=== PATIENT | female | born 1950 | race African-American/Black ===

== ENCOUNTER 2017-04-01 10:50 | Inpatient (IN) | payer OTHER, MEDICAID ==
[~2017-04-01] VITALS: Ht 165.1 cm; Wt 88.7 kg
[~2017-04-01 10:50] MED LIST: ACET650T10 PO; AMLO5TAB2 PO; ASPI-991 PO; DONE10TA14 PO; ESCI10TA PO; LISI40TA4 PO; LORA1TAB PO; OLAN2.5T3 PO; PANT40TA4 PO; ZOLP5TAB7 PO
[2017-04-01] MEDS ORDERED: ONDA4TAB5 GT (11:25)
[2017-04-01] MEDS ORDERED: TRAV5DRO EACHEYE (11:25)
[2017-04-01] MEDS ORDERED: LISI-603 PO ×2 (11:25)
[2017-04-01] MEDS ORDERED: NAPR375T4 PO (11:25)
[2017-04-01] MEDS ORDERED: ACET-2067 PO (11:25)
[2017-04-01] MEDS ORDERED: ONDA4TAB5 PO (11:25)
--- NOTE | 2017-04-01 11:30 | NUR ---
Pt evaluated by MD in room 1B; BIB ambulance from assisted living facility for inadequate PO intake per paramedics. Pt w/ altered mental status, hx of alzheimers; Cont w/ MD orders.
[2017-04-01 11:41] LABS: ALANINE AMINOTRANSFERASE 48 U/L (14-59); ALKALINE PHOSPHATASE 87 U/L (50-136); ASPARTATE AMINOTRANSFERASE 55 U/L (15-37); BILIRUBIN,DIRECT 0.2 mg/dL (0.0-0.2); BILIRUBIN,TOTAL 0.8 mg/dL (0.2-1.0); CARBON DIOXIDE 30 mmol/L (21-32); CHLORIDE 113 mmol/L (98-107); GLUCOSE 115 mg/dL (74-106); POTASSIUM 3.8 mmol/L (3.5-5.1); TOTAL PROTEIN, SERUM 9.5 g/dL (6.4-8.2); UREA NITROGEN, BLOOD 49 mg/dL (7-18)
[2017-04-01 11:44] LABS: CREATININE 2.6 mg/dL (0.6-1.3)
[2017-04-01 11:45] LABS: ACETAMINOPHEN < 2.0 ug/mL (10-30)
[2017-04-01 11:55] LABS: MAGNESIUM 2.7 mg/dL (1.8-2.4); PHOSPHOROUS 3.4 mg/dL (2.5-4.9)
[2017-04-01] MEDS ORDERED: IV NORMAL SALINE 500 ML BAG IV ONE (12:00)
[2017-04-01 12:23] LABS: *BLOOD, URINE 2+ (NEGATIVE); *CLARITY,URINE CLOUDY (CLEAR); *COLOR,URINE YELLOW (YELLOW); *KETONES,URINE TRACE (NEGATIVE); *PROTEIN,URINE 2+ (NEGATIVE); LEUKOCYTE ESTERASE ,URINE 2+ (NEGATIVE); UGLUCOSE NEGATIVE (NEGATIVE)
--- NOTE | 2017-04-01 12:23 | NUR ---
ER registration staff Marcos is working on patient's insurance at this time.
[2017-04-01 12:32] LABS: ETHANOL < 3 MG/DL (0-0)
[2017-04-01 12:39] LABS: NITRITE, URINE POSITIVE (NEGATIVE)
[2017-04-01 12:40] LABS: *AMPHETAMINE, URINE NEGATIVE (NEGATIVE); *BARBITURATE, URINE NEGATIVE (NEGATIVE); *CANNABINOID, URINE NEGATIVE (NEGATIVE); *COCCAINE, URINE NEGATIVE (NEGATIVE); *OPIATE, URINE NEGATIVE (NEGATIVE); *PHENCYCLIDINE SCREEN,URINE NEGATIVE (NEGATIVE)
[2017-04-01 12:42] LABS: *BILIRUBIN,URIN 1+ (NEGATIVE)
[2017-04-01 12:44] LABS: BACTERIA,URINE MANY /HPF (NONE SEEN); RBC,URINE 50-80 /HPF (0-3); SQUAMOUS EPITHELIAL CELL,UR FEW /HPF (NONE SEEN); WBC,URINE TNTC /HPF (0-3)
[2017-04-01] MEDS ORDERED: ASPIRIN 300 MG RECTAL SUPP RC ONE ×2 (12:45→12:53)
[2017-04-01 12:55] LABS: BASOPHILS # (AUTO) 0.1 K/uL (0.0-8.0); BASOPHILS % (AUTO) 0.8 % (0.0-2.0); HEMATOCRIT 42.6 % (37-47); HEMOGLOBIN 13.4 G/DL (12.0-16.0); LYMPHOCYTES # (AUTO) 1.2 K/UL (0.8-4.8); LYMPHOCYTES % (AUTO) 6.8 % (20.5-51.5); MEAN CORPUSCULAR HEMOGLOBIN 28.8 UUG (27.0-31.0); MEAN CORPUSCULAR HGB CONC 31 g/dL (32.0-37.0); MEAN CORPUSCULAR VOLUME 91.8 FL (81.0-99.0); MONOCYTES # (AUTO) 0.8 K/UL (0.1-1.30); MONOCYTES % (AUTO) 4.5 % (0.0-11.0); NEUTROPHILS # (AUTO) 16.1 K/UL (1.8-8.9); NEUTROPHILS % (AUTO) 87.9 % (38.5-71.5); PLATELET COUNT (AUTO) 401 K/UL (150-450); RED BLOOD CELL COUNT(AUTO) 4.64 MIL/UL (4.2-5.4); WHITE BLOOD COUNT (AUTO) 18.2 K/UL (4.0-11.2)
[2017-04-01 12:58] LABS: THYROID STIMULATING HORMONE 1.804 mIU/mL (0.358-3.740)
[2017-04-01] MEDS ORDERED: CEFTRIAXONE 1 G in IV DEXTROSE 5% 50 ML IV ONE (13:00)
[2017-04-01] MEDS ORDERED: CEFTRIAXONE 1 G VIAL ONE (13:03)
[2017-04-01 13:25] LABS: BAND % (MANUAL) 2 % (0-10); LYMPHOCYTES % (MANUAL) 8 % (20-40); MONOCYTES % (MANUAL) 10 % (2-10); NEUTROPHILS % (MANUAL) 80 % (42-75)
--- NOTE | 2017-04-01 14:30 | NUR ---
Report given to 2nd/inbound telemarketer; pt stable to be transfered to unit; vss, nad noted.
[2017-04-01 16:30] VITALS: BP 136/78
--- NOTE | 2017-04-01 16:31 | NUR ---
NEW ADMISSION TO ROOM 214. PATIENT APHASIC, RESPONDS TO TOUCH. ADMISSION ASSESSMENT OBTAINED FROM MEDICAL RECORDS. DR. FERGUSON NOTIFIED OF NEW ADMISSION.
--- NOTE | 2017-04-01 19:03 | NUR ---
END OF SHIFT NOTE: PATIENT IN NO ACUTE DISTRESS THROUGHOUT SHIFT. NO S/S OF PAIN OBSERVED. VSS. SR/SB ON NOCTURNIST PHYSICIAN. RESPIRATIONS EVEN AND UNLABORED. TURNED AND REPOSITIONED EVERY 2 HOURS AND PRN. DVT PUMPS IN PLACE. FALL PRECAUTIONS IN PLACE.
--- NOTE | 2017-04-01 19:10 | NUR ---
Received report from BRITNEY Sims
--- NOTE | 2017-04-01 19:30 | NUR ---
Awake during initial rounds. Non verbal but able to follow simple commands. Not in distress. No s/s of pain/discomforts presented. Safety measures and fall precaution maintained. Continue care as planned.
[2017-04-01 20:00] VITALS: BP 133/67
[2017-04-01] MEDS ORDERED: ZOLPIDEM 5 MG TABLET PO PRN ×2 (20:00→20:15)
[2017-04-01] MEDS ORDERED: Z GUARD REMEDY PASTE 57 GM TUBE TOP PRN (20:00)
[2017-04-01] MEDS ORDERED: ONDANSETRON 4 MG/2 ML VIAL IV PRN (20:00)
[2017-04-01] MEDS ORDERED: HYDROCODONE/APAP 5-325MG TABLET PO PRN (20:00)
[2017-04-01] MEDS ORDERED: MAGNESIUM HYDROXIDE 30 ML LIQUID UDC PO PRN (20:00)
[2017-04-01] MEDS ORDERED: ONDANSETRON HCL 4 MG TABLET GT PRN (20:15)
[2017-04-01] MEDS ORDERED: ONDANSETRON HCL 4 MG TABLET PO PRN (20:15)
[2017-04-01] MEDS ORDERED: LORAZEPAM 1 MG TABLET PO PRN (20:15)
[2017-04-01] MEDS ORDERED: ACETAMINOPHEN 325 MG TABLET PO SCH (20:15)
[2017-04-01] MEDS ORDERED: LISINOPRIL 20 MG TABLET PO SCH (21:00)
[2017-04-01] MEDS: IV NS 1000 ML 1,000 ML IV SCH (21:20)
--- NOTE | 2017-04-01 22:10 | NUR ---
Patient daughter Yesica, claiming as a DPOA here visiting. Expressed desire to have mom on DNR status. Discuss with Charge nurse the proper procedure. Will bring copy of DPOA papers and forms to fill up in AM.
--- NOTE | 2017-04-01 23:40 | NUR ---
Received patient on bed, eyes closed and smiling. HOB elevated. NGT intact and patent. No s/s of pain/discomforts noted. Incontinence care rendered. Repositioned for comfort. Continue care as planned.
[2017-04-02 01:40] VITALS: BP 99/51
[2017-04-02 04:00] VITALS: BP 119/64
[2017-04-02 05:19] VITALS: BP 119/64
[2017-04-02] MEDS: IV NS 1000 ML 1,000 ML IV SCH (06:05)
[2017-04-02] MEDS: PANTOPRAZOLE SODIUM 40 MG TABLET.DR PO SCH (06:06)
--- NOTE | 2017-04-02 06:34 | NUR ---
Slept well no significant event reported all night. All needs attended and met. Continue care as planned.
[2017-04-02 06:55] LABS: BASOPHILS % (AUTO) 0.1 % (0.0-2.0); EOSINOPHILS % (AUTO) 0.1 % (0.0-7.0); HEMATOCRIT 36.6 % (37-47); HEMOGLOBIN 11.6 G/DL (12.0-16.0); LYMPHOCYTES # (AUTO) 1.2 K/UL (0.8-4.8); MEAN CORPUSCULAR HGB CONC 32 g/dL (32.0-37.0); MONOCYTES # (AUTO) 0.7 K/UL (0.1-1.30); MONOCYTES % (AUTO) 5.1 % (0.0-11.0); NEUTROPHILS # (AUTO) 11.8 K/UL (1.8-8.9); NEUTROPHILS % (AUTO) 85.7 % (38.5-71.5); PLATELET COUNT (AUTO) 362 K/UL (150-450); RED BLOOD CELL COUNT(AUTO) 4.02 MIL/UL (4.2-5.4); WHITE BLOOD COUNT (AUTO) 13.6 K/UL (4.0-11.2)
--- NOTE | 2017-04-02 07:10 | NUR ---
Report given to BRITNEY Sims
[2017-04-02 07:40] LABS: MAGNESIUM 2.3 mg/dL (1.8-2.4); PHOSPHOROUS 2.8 mg/dL (2.5-4.9)
[2017-04-02 07:50] LABS: POTASSIUM 3.3 mmol/L (3.5-5.1)
[2017-04-02 08:05] LABS: CREATININE 1.7 mg/dL (0.6-1.3)
--- NOTE | 2017-04-02 08:27 | NUR ---
DR. GATICA IN TO SEE PATIENT AND NOTIFIED OF NA RESULTS 158.
[2017-04-02 08:34] LABS: EOSINOPHILS % (MANUAL) 1 % (0-8); LYMPHOCYTES % (MANUAL) 10 % (20-40); MONOCYTES % (MANUAL) 4 % (2-10); NEUTROPHILS % (MANUAL) 85 % (42-75)
[2017-04-02] MEDS ORDERED: ASPIRIN EC 81 MG TABLET.DR PO SCH (09:00)
[2017-04-02] MEDS ORDERED: AMLODIPINE 5 MG TABLET PO SCH (09:00)
[2017-04-02] MEDS ORDERED: DONEPEZIL HCL 10 MG PO SCH (09:00)
[2017-04-02] MEDS ORDERED: LISINOPRIL 20 MG TABLET PO SCH (09:00)
[2017-04-02] MEDS ORDERED: DONEPEZIL 10 MG TABLET PO SCH (09:00)
[2017-04-02] MEDS ORDERED: ESCITALOPRAM OXALATE 10 MG TABLET PO SCH (09:00)
[2017-04-02] MEDS ORDERED: OLANZAPINE 2.5 MG TABLET PO SCH (09:00)
[2017-04-02] MEDS: POTASSIUM CHLORIDE 10 MEQ in IV 1/2NS 1000 ML 1,000 ML IV PRN ×2 (11:00→23:32)
[2017-04-02 12:00] VITALS: BP 128/64
[2017-04-02] MEDS: CEFTRIAXONE 1 G in IV DEXTROSE 5% 50 ML IV SCH (12:59)
[2017-04-02 16:06] VITALS: BP 120/56
[2017-04-02 19:00] VITALS: BP 131/57
--- NOTE | 2017-04-02 19:10 | NUR ---
Received report from BRITNEY Sims
--- NOTE | 2017-04-02 19:14 | NUR ---
END OF SHIFT NOTE: PATIENT IN NO ACUTE DISTRESS THROUGHOUT THE SHIFT. VSS. NO S/S OF PAIN OBSERVED. SR ON BUSINESS QUALITY ASSURANCE ANALYST. RESPIRATIONS EVEN AND UNLABORED. ORDERS RECEIVED FROM DR. MULLINS TO KEEP NPO AND INSERT NGT. 14 F NGT PLACED WITH EASE THROUGH THE RIGHT NARES USING CLEAN TECHNIQUE. PLACEMENT CHECKED PER AUSCULTATION. KUB ORDERED FOR PLACEMENT. ENDORSED TO CIGARETTE MAKING MACHINE CATCHER TO FOLLOW UP WITH DR. MULLINS FOR GT FEEDINGS.
[2017-04-02] MEDS: LATANOPROST OPHT DROP 2.5 ML BOTTLE EACHEYE SCH (20:37)
[2017-04-02] MEDS ORDERED: NUTREN 1.5 1000ML BAG GT PRN (22:15)
--- NOTE | 2017-04-02 23:42 | NUR ---
NGT feeding Nutren 1.5 15 cc/hour initiated as ordered. Will continue to monitor.
[2017-04-03 00:20] VITALS: BP 126/77
[2017-04-03 04:00] VITALS: BP 125/65
[2017-04-03] MEDS: PANTOPRAZOLE SODIUM 40 MG TABLET.DR PO SCH (05:50)
--- NOTE | 2017-04-03 05:51 | NUR ---
Protonix po was not given as ordered. Pt on NGT, not allowed to crush mentioned med. Will endorse to AM nurse.
--- NOTE | 2017-04-03 05:59 | NUR ---
Eyes closed all the time. Slept soundly. Tolerating NGT feeding. No gastric residual noted. HOB kept elevated. No s/s of aspiration noted. All needs attended and met. No significant event reported all night. Continue care as planned.
[2017-04-03 06:56] LABS: BASOPHILS % (AUTO) 0.2 % (0.0-2.0); EOSINOPHILS # (AUTO) 0.1 K/uL (0.0-0.7); EOSINOPHILS % (AUTO) 0.6 % (0.0-7.0); HEMOGLOBIN 11.4 G/DL (12.0-16.0); LYMPHOCYTES % (AUTO) 11.2 % (20.5-51.5); MEAN CORPUSCULAR HEMOGLOBIN 29.8 UUG (27.0-31.0); MEAN CORPUSCULAR HGB CONC 33 g/dL (32.0-37.0); MEAN CORPUSCULAR VOLUME 91.5 FL (81.0-99.0); MONOCYTES # (AUTO) 0.6 K/UL (0.1-1.30); MONOCYTES % (AUTO) 6.7 % (0.0-11.0); NEUTROPHILS # (AUTO) 7.3 K/UL (1.8-8.9); NEUTROPHILS % (AUTO) 81.3 % (38.5-71.5); PLATELET COUNT (AUTO) 313 K/UL (150-450); RED BLOOD CELL COUNT(AUTO) 3.82 MIL/UL (4.2-5.4)
[2017-04-03 07:13] LABS: BILIRUBIN,TOTAL 0.5 mg/dL (0.2-1.0); CREATININE 1.3 mg/dL (0.6-1.3); MAGNESIUM 2.5 mg/dL (1.8-2.4); POTASSIUM 3.4 mmol/L (3.5-5.1); TOTAL PROTEIN, SERUM 7.3 g/dL (6.4-8.2)
--- NOTE | 2017-04-03 07:30 | NUR ---
PATIENT RECEIVED IN ROOM RESTING WITH EYES CLOSED, EASILY AWAKEN IN NO ACUTE DISTRESS. NGT IN PLACE WITH GT FEEDINGS RUNNING AT 30 ML/HR. HOB ELEVATED. RESPIRATIONS EVEN AND UNLABORED. IVF RUNNING. FALL PRECAUTIONS IN PLACE.
[2017-04-03] MEDS ORDERED: NUTREN 1.5 1000ML BAG GT PRN (07:43)
[2017-04-03 08:34] LABS: EOSINOPHILS % (MANUAL) 1 % (0-8); LYMPHOCYTES % (MANUAL) 18 % (20-40); MONOCYTES % (MANUAL) 4 % (2-10); NEUTROPHILS % (MANUAL) 77 % (42-75)
--- NOTE | 2017-04-03 08:55 | NUR ---
PATIENT PULL OUT NG TUBE, RE-INSERTED, PLACEMENT CHECKED ON AUSCULTATION, WAITING FOR THE RESULTS OF THE KUB.
[2017-04-03] MEDS: POTASSIUM CHLORIDE 10 MEQ in IV 1/2NS 1000 ML 1,000 ML IV PRN ×2 (10:02→22:04)
--- NOTE | 2017-04-03 10:17 | NUR ---
NGT ADVANCED PER KUB.
[2017-04-03 11:02] VITALS: BP 136/78
--- NOTE | 2017-04-03 12:14 | NUR ---
NGT PLACEMENT CONFIRMED WITH KUB. GT FEEDING RESTARTED.
[2017-04-03] MEDS: CEFTRIAXONE 1 G in IV DEXTROSE 5% 50 ML IV SCH (12:47)
[2017-04-03] MEDS: ASPIRIN 81 MG TAB.CHEW GT SCH (12:55)
[2017-04-03] MEDS: OLANZAPINE 2.5 MG TABLET GT SCH (12:56)
[2017-04-03] MEDS: ESCITALOPRAM OXALATE 10 MG TABLET GT SCH (12:56)
[2017-04-03] MEDS: DONEPEZIL 10 MG TABLET GT SCH (12:57)
[2017-04-03] MEDS ORDERED: BISACODYL 10 MG SUPP.RECT RC ONE (14:30)
[2017-04-03 15:04] VITALS: BP 123/55
[2017-04-03 16:55] LABS: *CREATININE,URINE 163.4 mg/dL (30-125)
--- NOTE | 2017-04-03 17:20 | NUR ---
DISCUSSED RECOMMENDATIONS WITH DR. SALDANA. DR. SALDANA NOTIFIED OF FAMILY'S CONCERNS REGARDING PATIENT. DR. SALDANA STATED WILL CONTACT THE FAMILY.
[2017-04-03] MEDS: FIBERSOURCE HN 1000ML LIQUID GT PRN (18:10)
[2017-04-03] MEDS: HYDROCODONE/APAP 5-325MG TABLET GT PRN (18:18)
--- NOTE | 2017-04-03 18:46 | NUR ---
END OF SHIFT NOTE: PATIENT IN NO ACUTE DISTRESS THROUGHOUT SHIFT. PAIN MANAGED WITH MEDICATION PRESCRIBED. VOMITED X1, RESPIRATIONS EVEN AND UNLABORED. VSS. NGT RESIDUAL CHECKED AND 15CC NOTED. HOB ELEVATED. NGT FEEDINGS FIBERSOURCE AT 45 ML/HR. INCONTINENT OF B+B. TURNED AND REPOSITIONED EVERY 2 HOURS AND PRN. NEEDS MET BY STAFF.
[2017-04-03 20:35] VITALS: BP 126/63
[2017-04-03] MEDS: LATANOPROST OPHT DROP 2.5 ML BOTTLE EACHEYE SCH (20:55)
[2017-04-04 00:04] VITALS: BP 120/63
--- NOTE | 2017-04-04 02:00 | NUR ---
Patient asleep, arousable by touch, in no acute distress. NGT on right nares intact, no erosion noted, placement checked via auscultation, active bowel sounds, HOB elevated, aspiration precaution. Patient tolerating NGT feeding well, no s/s of nausea/vomiting/diarrhea, 5ml gastric residual noted, increased feeding from 45ml/hr to 60ml/hr as ordered, flushed with 50ml of water per protocol. Oral and nasal care provided, repositioned for comfort, patient kept clean/dry. Bed alarm on, will continue to monitor.
[2017-04-04 04:19] VITALS: BP 126/54
--- NOTE | 2017-04-04 06:00 | NUR ---
Patient slept well, in no acute distress. Patient is on TELE - Sinus rhythm 60's, noted with occasional non sustained vtach, PACs/PVCs. Patient tolerating NGT feeding running at 60ml/hr, no gastric residual noted. IVF running, no infiltration noted. Oral/nasal care provided. Will continue to monitor.
--- NOTE | 2017-04-04 07:30 | NUR ---
Unable to administer Protonix PO "DO NOT CRUSH". Called pharmacy, spoke with Thalia to make changes due to patient on NPO and has NGT. Will endorse to the AM shift RN.
[2017-04-04] MEDS: PANTOPRAZOLE SODIUM 40 MG VIAL IV SCH (08:05)
[2017-04-04] MEDS: ASPIRIN 81 MG TAB.CHEW GT SCH (08:06)
--- NOTE | 2017-04-04 08:30 | NUR ---
Patient in bed resting, no s/s of distress noted. Ng tube still in place running at 60cc/hr, placement verified by auscultation. No residual. Safety and comfort provided. Will continue monitoring.
[2017-04-04 08:34] LABS: BASOPHILS % (AUTO) 0.3 % (0.0-2.0); EOSINOPHILS # (AUTO) 0.1 K/uL (0.0-0.7); EOSINOPHILS % (AUTO) 1.4 % (0.0-7.0); HEMATOCRIT 33.6 % (37-47); HEMOGLOBIN 10.7 G/DL (12.0-16.0); LYMPHOCYTES # (AUTO) 1.2 K/UL (0.8-4.8); LYMPHOCYTES % (AUTO) 14.5 % (20.5-51.5); MEAN CORPUSCULAR HEMOGLOBIN 29.1 UUG (27.0-31.0); MEAN CORPUSCULAR HGB CONC 32 g/dL (32.0-37.0); MEAN CORPUSCULAR VOLUME 91.6 FL (81.0-99.0); MONOCYTES # (AUTO) 0.4 K/UL (0.1-1.30); MONOCYTES % (AUTO) 4.3 % (0.0-11.0); NEUTROPHILS # (AUTO) 6.8 K/UL (1.8-8.9); NEUTROPHILS % (AUTO) 79.5 % (38.5-71.5); PLATELET COUNT (AUTO) 292 K/UL (150-450); RED BLOOD CELL COUNT(AUTO) 3.67 MIL/UL (4.2-5.4); WHITE BLOOD COUNT (AUTO) 8.5 K/UL (4.0-11.2)
[2017-04-04 08:53] LABS: BILIRUBIN,TOTAL 0.3 mg/dL (0.2-1.0); CREATININE 1.1 mg/dL (0.6-1.3); MAGNESIUM 2.2 mg/dL (1.8-2.4); PHOSPHOROUS 2.4 mg/dL (2.5-4.9); POTASSIUM 3.6 mmol/L (3.5-5.1); TOTAL PROTEIN, SERUM 6.8 g/dL (6.4-8.2)
[2017-04-04 11:03] VITALS: BP 114/59
[2017-04-04] MEDS: CEFTRIAXONE 1 G in IV DEXTROSE 5% 50 ML IV SCH (12:33)
[2017-04-04] MEDS ORDERED: NEUTRA PHOS PACKET GT ONE (15:15)
[2017-04-04 15:18] VITALS: BP 116/64
[2017-04-04] MEDS: FIBERSOURCE HN 1000ML LIQUID GT PRN (17:35)
--- NOTE | 2017-04-04 18:06 | NUR ---
Dr. Cruz called and said that he already discuss to the daughter's patients about his recommendation, non weight bearing and discharge to [facility]. Addendum: 04/04/17 at 1816 by CHANDLER COUGHLIN RN wrong patient
--- NOTE | 2017-04-04 18:17 | NUR ---
PATIENT IN BED RESTING. NO S/S OF DISTRESS NOTED. NO PAIN NOTED. ORAL HYGIENE WAS DONE. FEEDING TUBE WAS CHANGES, SAME FIBERSOURCE BAG. INCREASE RATE 70CC/HR. WELL TOLERATED. NO RESIDUAL. PLACEMENT WAS VERIFIED WAS AUSCULTATION BEFORE ADMINISTER MEDICATIONS. TURNED OFF IV FLUIDS DUE TO HER HIGH NA LAB VALUE. DR. MURO ORDERED TO HEPLOCK. MESSAGE WAS GIVEN TO DR. MURO ABOUT PATIENT'S DAUGHTER WANTED TO TALK HIM FOR PATIENT'S CONDITION. SAFETY AND COMFORT PROVIDED. WILL CONTINUE MONITORING.
[2017-04-04 19:58] VITALS: BP 126/70
[2017-04-04] MEDS: LATANOPROST OPHT DROP 2.5 ML BOTTLE EACHEYE SCH (20:42)
[2017-04-04] MEDS: ATORVASTATIN 10 MG TABLET GT SCH (20:42)
[2017-04-05 04:29] VITALS: BP 129/71
--- NOTE | 2017-04-05 06:00 | NUR ---
PATIENT SLEPT WELL, AROUSABLE, IN NO ACUTE DISTRESS. TOLERATES NGT FEEDING 70CC/HR WITH NO RESIDUAL, FLUSHED PER PROTOCOL. ORAL AND SKIN CARE PROVIDED, KEPT CLEAN/DRY. ORDERED SPECIALTY MATTRESS. CONTINUE PLAN OF CARE. WILL CONTINUE TO MONITOR.
[2017-04-05] MEDS: PANTOPRAZOLE SODIUM 40 MG VIAL IV SCH (06:04)
[2017-04-05 07:21] LABS: BASOPHILS % (AUTO) 0.3 % (0.0-2.0); EOSINOPHILS # (AUTO) 0.1 K/uL (0.0-0.7); EOSINOPHILS % (AUTO) 1.3 % (0.0-7.0); HEMATOCRIT 32.3 % (37-47); HEMOGLOBIN 10.4 G/DL (12.0-16.0); LYMPHOCYTES # (AUTO) 1.4 K/UL (0.8-4.8); LYMPHOCYTES % (AUTO) 18.1 % (20.5-51.5); MEAN CORPUSCULAR HEMOGLOBIN 29.4 UUG (27.0-31.0); MEAN CORPUSCULAR HGB CONC 32 g/dL (32.0-37.0); MONOCYTES # (AUTO) 0.7 K/UL (0.1-1.30); MONOCYTES % (AUTO) 8.7 % (0.0-11.0); NEUTROPHILS # (AUTO) 5.4 K/UL (1.8-8.9); NEUTROPHILS % (AUTO) 71.6 % (38.5-71.5); PLATELET COUNT (AUTO) 296 K/UL (150-450); RED BLOOD CELL COUNT(AUTO) 3.54 MIL/UL (4.2-5.4); WHITE BLOOD COUNT (AUTO) 7.6 K/UL (4.0-11.2)
[2017-04-05] MEDS ORDERED: IV D5W 1000ML 1,000 ML IV ONE (07:30)
[2017-04-05 07:38] LABS: BILIRUBIN,TOTAL 0.3 mg/dL (0.2-1.0); MAGNESIUM 2.1 mg/dL (1.8-2.4); PHOSPHOROUS 2.7 mg/dL (2.5-4.9); POTASSIUM 3.4 mmol/L (3.5-5.1); TOTAL PROTEIN, SERUM 6.7 g/dL (6.4-8.2)
[2017-04-05] MEDS: OLANZAPINE 2.5 MG TABLET GT SCH (08:37)
[2017-04-05] MEDS: DONEPEZIL 10 MG TABLET GT SCH (08:38)
[2017-04-05] MEDS: ASPIRIN 81 MG TAB.CHEW GT SCH (08:38)
[2017-04-05] MEDS: ESCITALOPRAM OXALATE 10 MG TABLET GT SCH (08:38)
[2017-04-05 11:14] VITALS: BP 130/70
[2017-04-05] MEDS: CEFTRIAXONE 1 G in IV DEXTROSE 5% 50 ML IV SCH (12:45)
[2017-04-05] MEDS ORDERED: POTASSIUM CHLORIDE 20 MEQ TAB.PRT.SR PO ONE (15:00)
[2017-04-05 15:13] VITALS: BP 152/65
[2017-04-05] MEDS ORDERED: DIATR MEGLU/DIATRIZOATE SODIUM 30 ML SOLUTION ONE (15:55)
--- NOTE | 2017-04-05 19:00 | NUR ---
PATIENT IN BED RESTING. NO S/S OF DISTRESS NOTED. V/S WNL. IV AND NG-TUBE WAS PULLED OUT BY PATIENT. NEW IV CATHETER WAS DONE BY YAQUELIN GUERRA. A NEW NG-TUBE #16 WAS INSERTED, WELL TOLERATED. PLACEMENT WAS VERIFIED BY X-RAY AND AUSCULTATION. DAUGHTER WAS AT THE BEDSIDE DURING THE AFTERNOON. MOUTH HYGIENE WAS DONE. NO RESIDUAL DURING THE DAY, FEEDING WELL TOLERATED. CALLED DIETARY TO BRING A NEW FIBER SOURCE, ENDORSE TO RN. SAFETY AND COMFORT PROVIDED DURING MY SHIFT. REPORT GIVEN TO BRITNEY DEVI
[2017-04-05] MEDS: FIBERSOURCE HN 1000ML LIQUID GT PRN (19:43)
[2017-04-05 20:00] VITALS: BP 143/66
[2017-04-05] MEDS: ATORVASTATIN 10 MG TABLET GT SCH (21:51)
[2017-04-05] MEDS: LATANOPROST OPHT DROP 2.5 ML BOTTLE EACHEYE SCH (21:51)
[2017-04-06 04:00] VITALS: BP 129/85
[2017-04-06] MEDS: PANTOPRAZOLE ORAL SUSPENSION 40 MG SUSPDR.PKT GT SCH (05:18)
--- NOTE | 2017-04-06 05:54 | NUR ---
PATIENT SLEPT WELL, EASILY AROUSABLE, IN NO ACUTE DISTRESS. PATIENT SAID "WHY ME?". NGT FEEDING RUNNING, PATENT, TOLERATING WELL WITH MINIMAL RESIDUAL <15ML, FLUSHED PER PROTOCOL, HOB ELEVATED, ASPIRATION PRECAUTION OBSERVED. ORAL/NASAL CARE PROVIDED, PATIENT KEPT CLEAN/DRY, REPOSITIONED FOR COMFORT. FREQUENT ROUNDS DONE, BED ALARM ON, WILL CONTINUE TO MONITOR. CONTINUE PLAN OF CARE.
[2017-04-06 07:32] LABS: EOSINOPHILS # (AUTO) 0.1 K/uL (0.0-0.7); HEMOGLOBIN 11.6 G/DL (12.0-16.0); LYMPHOCYTES # (AUTO) 1.7 K/UL (0.8-4.8); MONOCYTES # (AUTO) 0.5 K/UL (0.1-1.30)
[2017-04-06 07:40] LABS: BASOPHILS % (AUTO) 0.1 % (0.0-2.0); EOSINOPHILS % (AUTO) 1.7 % (0.0-7.0); LYMPHOCYTES % (AUTO) 21.7 % (20.5-51.5); MEAN CORPUSCULAR HEMOGLOBIN 28.3 UUG (27.0-31.0); MEAN CORPUSCULAR HGB CONC 31 g/dL (32.0-37.0); MONOCYTES % (AUTO) 6.3 % (0.0-11.0); NEUTROPHILS # (AUTO) 5.6 K/UL (1.8-8.9); NEUTROPHILS % (AUTO) 70.2 % (38.5-71.5); PLATELET COUNT (AUTO) 254 K/UL (150-450); WHITE BLOOD COUNT (AUTO) 7.9 K/UL (4.0-11.2)
[2017-04-06 07:49] LABS: BILIRUBIN,TOTAL 0.3 mg/dL (0.2-1.0); CREATININE 1.1 mg/dL (0.6-1.3); PHOSPHOROUS 2.9 mg/dL (2.5-4.9); POTASSIUM 3.4 mmol/L (3.5-5.1); TOTAL PROTEIN, SERUM 7.1 g/dL (6.4-8.2)
[2017-04-06 08:05] LABS: HEMATOCRIT 37.2 % (37-47); RED BLOOD CELL COUNT(AUTO) 4.05 MIL/UL (4.2-5.4)
[2017-04-06] MEDS: ESCITALOPRAM OXALATE 10 MG TABLET GT SCH (09:47)
[2017-04-06] MEDS: ASPIRIN 81 MG TAB.CHEW GT SCH (09:47)
[2017-04-06] MEDS: OLANZAPINE 2.5 MG TABLET GT SCH (09:47)
[2017-04-06] MEDS: DONEPEZIL 10 MG TABLET GT SCH (09:47)
[2017-04-06 12:00] VITALS: BP 141/73
[2017-04-06] MEDS: CEFTRIAXONE 1 G in IV DEXTROSE 5% 50 ML IV SCH (13:24)
[2017-04-06] MEDS: FIBERSOURCE HN 1000ML LIQUID GT PRN (15:20)
[2017-04-06] MEDS ORDERED: POTASSIUM CHLORIDE 20 MEQ POWDER PACKET GT ONE (15:30)
[2017-04-06 16:00] VITALS: BP 151/78
--- NOTE | 2017-04-06 17:11 | NUR ---
PATIENT IN BED. NO S/S OF DISTRESS NOTED. SHE WAS AWAKE DURING THE MORNING WATCHING TV. NG-TUBE WAS PULLED OUT FROM 50 TO 45, PUT IT BACK IN. PLACEMENT WAS VERIFIED BY AUSCULTATION AND X-RAY. IV STILL INTACT. NUTRITION FEEDING AND TUBING WAS CHANGED BY KISHAN CHARGE NURSE. NO RESIDUAL. NUTRITION AND MEDICATIONS WELL TOLERATED. REPOSITION PATIENT Q2HRS. SKIN STILL INTACT. MOUTH HYGIENE WAS PROVIDED. SAFETY AND COMFORT PROVIDED ORDERED. WILL CONTINUE MONITORING ORDERED.
[2017-04-06 20:00] VITALS: BP_SYST 134; BP_SYST 145; BP_DIAS 66; BP_DIAS 68
[2017-04-06] MEDS: LATANOPROST OPHT DROP 2.5 ML BOTTLE EACHEYE SCH (20:43)
[2017-04-06] MEDS: ATORVASTATIN 10 MG TABLET GT SCH (20:43)
[2017-04-07 04:00] VITALS: BP 151/86
[2017-04-07] MEDS: PANTOPRAZOLE ORAL SUSPENSION 40 MG SUSPDR.PKT GT SCH (05:50)
[2017-04-07 06:48] LABS: BASOPHILS % (AUTO) 0.5 % (0.0-2.0); EOSINOPHILS # (AUTO) 0.1 K/uL (0.0-0.7); EOSINOPHILS % (AUTO) 1.5 % (0.0-7.0); HEMATOCRIT 37.7 % (37-47); HEMOGLOBIN 11.9 G/DL (12.0-16.0); LYMPHOCYTES # (AUTO) 1.6 K/UL (0.8-4.8); LYMPHOCYTES % (AUTO) 20.1 % (20.5-51.5); MEAN CORPUSCULAR HEMOGLOBIN 28.7 UUG (27.0-31.0); MEAN CORPUSCULAR HGB CONC 32 g/dL (32.0-37.0); MEAN CORPUSCULAR VOLUME 90.5 FL (81.0-99.0); MONOCYTES # (AUTO) 0.4 K/UL (0.1-1.30); MONOCYTES % (AUTO) 5.7 % (0.0-11.0); NEUTROPHILS # (AUTO) 5.7 K/UL (1.8-8.9); NEUTROPHILS % (AUTO) 72.2 % (38.5-71.5); PLATELET COUNT (AUTO) 307 K/UL (150-450); RED BLOOD CELL COUNT(AUTO) 4.16 MIL/UL (4.2-5.4); WHITE BLOOD COUNT (AUTO) 7.8 K/UL (4.0-11.2)
[2017-04-07 07:16] LABS: BILIRUBIN,TOTAL 0.3 mg/dL (0.2-1.0); MAGNESIUM 1.8 mg/dL (1.8-2.4); PHOSPHOROUS 2.5 mg/dL (2.5-4.9); POTASSIUM 3.6 mmol/L (3.5-5.1); TOTAL PROTEIN, SERUM 6.9 g/dL (6.4-8.2)
--- NOTE | 2017-04-07 07:44 | NUR ---
pt received in bed sleeping .pt is axox1.morning assessment done.v/s are stable.pt is npo.
[2017-04-07] MEDS: ESCITALOPRAM OXALATE 10 MG TABLET GT SCH (08:13)
[2017-04-07] MEDS: ASPIRIN 81 MG TAB.CHEW GT SCH (08:14)
[2017-04-07] MEDS: DONEPEZIL 10 MG TABLET GT SCH (08:14)
[2017-04-07] MEDS: OLANZAPINE 2.5 MG TABLET GT SCH (08:14)
[2017-04-07 10:14] LABS: BAND % (MANUAL) 2 % (0-10); BASOPHILS % (MANUAL) 1 % (0-2); EOSINOPHILS % (MANUAL) 2 % (0-8); LYMPHOCYTES % (MANUAL) 22 % (20-40); MONOCYTES % (MANUAL) 7 % (2-10); NEUTROPHILS % (MANUAL) 66 % (42-75)
[2017-04-07 11:45] VITALS: BP 131/77
[2017-04-07] MEDS: CEFTRIAXONE 1 G in IV DEXTROSE 5% 50 ML IV SCH (12:05)
[2017-04-07 16:12] VITALS: BP 137/57
[2017-04-07 20:00] VITALS: BP 134/67
--- NOTE | 2017-04-07 20:00 | NUR ---
PATIENT AWAKE IN BED. ALERT TO SELF. NO S/S OF PAIN OR DISCOMFORT. NO FACIAL GRIMACE NOTED. NO RESP. DISTRESS NOTED. TUBE FEEDING INFUSING TO RIGHT NOSTRIL. HOB ELEVATED FOR ASPIRATION PRECAUTIONS. ON AIR MATTRESS. REPOSITIONED TO SIDE. BED ALARM ON. CALL LIGHT IN REACH. ALL NEEDS ATTENDED, WILL CONTINUE TO MONITOR.
[2017-04-07] MEDS: ATORVASTATIN 10 MG TABLET GT SCH (20:49)
[2017-04-07] MEDS: LATANOPROST OPHT DROP 2.5 ML BOTTLE EACHEYE SCH (20:49)
[2017-04-07] MEDS: FIBERSOURCE HN 1000ML LIQUID GT PRN (23:21)
[2017-04-08 05:18] VITALS: BP 121/80
--- NOTE | 2017-04-08 05:50 | NUR ---
PATIENT ASLEEP IN BED. EASILY AROUSABLE. SLEPT WELL THROUGHOUT THE NIGHT. NO S/S OF PAIN OR DISCOMFORT. TUBE FEEDING INFUSING TO NGT. PATIENT ON ASPIRATION PRECAUTIONS. VSS. REPOSITIONED TO SIDE. BILATERAL HEELS OFF-LOADED FOR PRESSURE RELIEF. BED ALARM ON. ALL LIGHT IN REACH. ALL NEEDS ATTENDED. WILL CONTINUE TO MONITOR.
[2017-04-08] MEDS: PANTOPRAZOLE ORAL SUSPENSION 40 MG SUSPDR.PKT GT SCH (06:08)
[2017-04-08 07:37] LABS: CREATININE 0.9 mg/dL (0.6-1.3); MAGNESIUM 1.8 mg/dL (1.8-2.4); PHOSPHOROUS 3.1 mg/dL (2.5-4.9); POTASSIUM 4.1 mmol/L (3.5-5.1)
[2017-04-08 08:00] LABS: BASOPHILS % (AUTO) 0.4 % (0.0-2.0); EOSINOPHILS # (AUTO) 0.1 K/uL (0.0-0.7); EOSINOPHILS % (AUTO) 1.4 % (0.0-7.0); HEMATOCRIT 35.6 % (37-47); HEMOGLOBIN 11.7 G/DL (12.0-16.0); LYMPHOCYTES # (AUTO) 1.6 K/UL (0.8-4.8); LYMPHOCYTES % (AUTO) 22.6 % (20.5-51.5); MEAN CORPUSCULAR HEMOGLOBIN 29.8 UUG (27.0-31.0); MEAN CORPUSCULAR HGB CONC 33 g/dL (32.0-37.0); MEAN CORPUSCULAR VOLUME 90.6 FL (81.0-99.0); MONOCYTES # (AUTO) 0.5 K/UL (0.1-1.30); NEUTROPHILS # (AUTO) 4.9 K/UL (1.8-8.9); NEUTROPHILS % (AUTO) 68.6 % (38.5-71.5); PLATELET COUNT (AUTO) 325 K/UL (150-450); RED BLOOD CELL COUNT(AUTO) 3.93 MIL/UL (4.2-5.4); WHITE BLOOD COUNT (AUTO) 7.1 K/UL (4.0-11.2)
[2017-04-08] MEDS: DONEPEZIL 10 MG TABLET GT SCH (08:16)
[2017-04-08] MEDS: ESCITALOPRAM OXALATE 10 MG TABLET GT SCH (08:16)
[2017-04-08] MEDS: ASPIRIN 81 MG TAB.CHEW GT SCH (08:16)
[2017-04-08] MEDS: OLANZAPINE 2.5 MG TABLET GT SCH (08:16)
--- NOTE | 2017-04-08 09:59 | NUR ---
Patients NG tube replaced. Patient NG tube found to be removed. Patient however is wearing mittens and is asleep. Placement checked. Chest xray to be ordered to verify placement.
[2017-04-08 11:02] VITALS: BP 147/75
[2017-04-08] MEDS: CEFTRIAXONE 1 G in IV DEXTROSE 5% 50 ML IV SCH (13:10)
[2017-04-08 15:04] VITALS: BP 148/76
--- NOTE | 2017-04-08 19:30 | NUR ---
RECEIVED PATIENT AWAKE IN BED WITH DAUGHTER AT BEDSIDE. PATIENT IS ALERT TO SELF. NO S/S OF PAIN OR DISCOMFORT. NO RESP. DISTRESS NOTED. DAUGHTER SUZIE, AT BEDSIDE AND VERBALLY STATED THAT SHE WANTS HER MOM TO HAVE A PEG PLACEMENT BUT DOES NOT WANT TO SIGN ANY CONSENT UNTIL SHE IS CALLED BY GI AND PROCEDURE AND PLAN IS DISCUSSED. CIRCULATION ASSISTANT NOTIFIED AND WILL ENDORSE TO AM SHIFT. VSS. TUBE FEEDING INFUSING WELL TO RIGHT NARES. PATIENT TOLERATING WELL. PATIENT ON ASPIRATION PRECAUTIONS. VSS. ON AIR MATTRESS. BILATERAL HEELS OFF-LOADED FOR PRESSURE RELIEF. BED ALARM ON. CALL LIGHT IN REACH. ALL NEEDS ATTENDED. WILL CONTINUE TO MONITOR.
[2017-04-08 20:16] VITALS: BP 140/74
[2017-04-08] MEDS: LATANOPROST OPHT DROP 2.5 ML BOTTLE EACHEYE SCH (21:12)
[2017-04-08] MEDS: ATORVASTATIN 10 MG TABLET GT SCH (21:12)
[2017-04-08] MEDS: ACETAMINOPHEN 325 MG TABLET PO PRN (21:12)
--- NOTE | 2017-04-08 22:00 | NUR ---
PATIENT REPOSITIONED TO SIDE. BILATERAL HEELS OFF-LOADED. WILL CONTINUE TO MONITOR. ALL NEEDS ATTENDED.
[2017-04-09 04:00] VITALS: BP 116/51
[2017-04-09] MEDS: PANTOPRAZOLE ORAL SUSPENSION 40 MG SUSPDR.PKT GT SCH (06:14)
[2017-04-09 06:59] LABS: POTASSIUM 4.3 mmol/L (3.5-5.1)
[2017-04-09 07:35] LABS: BASOPHILS % (AUTO) 0.2 % (0.0-2.0); EOSINOPHILS # (AUTO) 0.1 K/uL (0.0-0.7); EOSINOPHILS % (AUTO) 1.5 % (0.0-7.0); HEMATOCRIT 34.3 % (37-47); HEMOGLOBIN 11.6 G/DL (12.0-16.0); LYMPHOCYTES # (AUTO) 1.7 K/UL (0.8-4.8); LYMPHOCYTES % (AUTO) 26.3 % (20.5-51.5); MEAN CORPUSCULAR HEMOGLOBIN 30.4 UUG (27.0-31.0); MEAN CORPUSCULAR HGB CONC 34 g/dL (32.0-37.0); MEAN CORPUSCULAR VOLUME 89.9 FL (81.0-99.0); MONOCYTES # (AUTO) 0.5 K/UL (0.1-1.30); MONOCYTES % (AUTO) 7.5 % (0.0-11.0); NEUTROPHILS # (AUTO) 4.1 K/UL (1.8-8.9); NEUTROPHILS % (AUTO) 64.5 % (38.5-71.5); PLATELET COUNT (AUTO) 275 K/UL (150-450); RED BLOOD CELL COUNT(AUTO) 3.81 MIL/UL (4.2-5.4); WHITE BLOOD COUNT (AUTO) 6.4 K/UL (4.0-11.2)
[2017-04-09] MEDS: DONEPEZIL 10 MG TABLET GT SCH (08:07)
[2017-04-09] MEDS: OLANZAPINE 2.5 MG TABLET GT SCH (08:07)
[2017-04-09] MEDS: ESCITALOPRAM OXALATE 10 MG TABLET GT SCH (08:07)
[2017-04-09] MEDS: ASPIRIN 81 MG TAB.CHEW GT SCH (08:07)
--- NOTE | 2017-04-09 08:51 | NUR ---
PT AWAKE IN, IN NO ACUTE DISTRESS, ALERT TO SELF. TUBE FEEDING INFUSING WELL IN RIGHT NARES. ALL MORNING MEDICATIONS GIVEN, ALL SAFETY AND COMFORT MEASURES ATTENDED TO, CALL LIGHT IN REACH, WILL CONTINUE TO MONITOR
[2017-04-09] MEDS: FIBERSOURCE HN 1000ML LIQUID GT PRN (09:48)
[2017-04-09 11:07] VITALS: BP 118/67
[2017-04-09] MEDS: CEFTRIAXONE 1 G in IV DEXTROSE 5% 50 ML IV SCH (13:23)
[2017-04-09 15:03] VITALS: BP 130/76
[2017-04-09] MEDS: ACETAMINOPHEN 325 MG TABLET PO PRN (16:08)
--- NOTE | 2017-04-09 18:33 | NUR ---
no changes noted throughout shift, call light in reach
--- NOTE | 2017-04-09 19:00 | NUR ---
PATIENT IN BED, HOB ELEVATE, NGT FEEDING TOLERATE WELL, NO NAUSEA AND VOMITTING NOTED, NO DIARRHEA, TURN AND REPOSITION EVERY TWO HOURS, NO S/S OF PAIN, CONT TO MONITOR.
[2017-04-09 20:00] VITALS: BP 128/60
[2017-04-09] MEDS: ATORVASTATIN 10 MG TABLET GT SCH (20:24)
[2017-04-09] MEDS: LATANOPROST OPHT DROP 2.5 ML BOTTLE EACHEYE SCH (20:26)
--- NOTE | 2017-04-10 01:30 | NUR ---
PATIENT SLEEP ON AND OFF, ON NGT FEEDING TOLERATE WELL NO N/V NO DIARRHEA NOTED, NO RESIDUAL NOTED, TURN AND REPOSITION, KEPT CLEAN AND DRY, HAND MITTEN IN PLACE, MONITOR AND CHECK PLACEMENT AND CIRCULATION. CONT TO MONITOR.
[2017-04-10 05:00] VITALS: BP 153/77
[2017-04-10] MEDS: PANTOPRAZOLE ORAL SUSPENSION 40 MG SUSPDR.PKT GT SCH (06:28)
--- NOTE | 2017-04-10 06:48 | NUR ---
PATIENT HAS EPISODE OF INSOMNIA, RESTLESSNESS, GIVEN ATIVAN 1MG PLUS TYLENOL ORDERED WITH HELP AFTER 30 MIN. ON NGT FEEDING TOLERATE WELL, NO NAUSEA NO VOMITTING NOTED, KEPT CLEAN DRY AND COMFORTABLE NO SOB NO CHEST PAIN NOTED.
--- NOTE | 2017-04-10 07:10 | NUR ---
PATIENT RECEIVED FROM MORNING SHIFT, SAFETY CHECK, BED IN LOW POSITION, SIDE RAILS UP X2
[2017-04-10] MEDS: OLANZAPINE 2.5 MG TABLET GT SCH (09:03)
[2017-04-10] MEDS: ASPIRIN 81 MG TAB.CHEW GT SCH (09:03)
[2017-04-10] MEDS: DONEPEZIL 10 MG TABLET GT SCH (09:03)
[2017-04-10] MEDS: ESCITALOPRAM OXALATE 10 MG TABLET GT SCH (09:03)
--- NOTE | 2017-04-10 10:30 | NUR ---
CALLED DAUGHTER AND GAVE HER DR PUTNAM'S PHONE NUMBER, CONTACTED DAUGHTER TO DISCUSS PEG, SET TO BE DONE ON SATURDAY MORNING
[2017-04-10 12:05] VITALS: BP 137/67
[2017-04-10 12:27] LABS: BASOPHILS % (AUTO) 0.4 % (0.0-2.0); EOSINOPHILS # (AUTO) 0.1 K/uL (0.0-0.7); EOSINOPHILS % (AUTO) 1.4 % (0.0-7.0); HEMATOCRIT 35.7 % (37-47); HEMOGLOBIN 11.8 G/DL (12.0-16.0); LYMPHOCYTES # (AUTO) 1.5 K/UL (0.8-4.8); LYMPHOCYTES % (AUTO) 20.9 % (20.5-51.5); MEAN CORPUSCULAR HEMOGLOBIN 29.6 UUG (27.0-31.0); MEAN CORPUSCULAR HGB CONC 33 g/dL (32.0-37.0); MONOCYTES # (AUTO) 0.4 K/UL (0.1-1.30); NEUTROPHILS % (AUTO) 72.3 % (38.5-71.5); PLATELET COUNT (AUTO) 317 K/UL (150-450); RED BLOOD CELL COUNT(AUTO) 3.97 MIL/UL (4.2-5.4)
[2017-04-10 12:37] LABS: CREATININE 0.9 mg/dL (0.6-1.3); MAGNESIUM 1.9 mg/dL (1.8-2.4); POTASSIUM 4.3 mmol/L (3.5-5.1)
[2017-04-10 16:08] VITALS: BP 107/77
--- NOTE | 2017-04-10 18:56 | NUR ---
DAUGHTER IS NOT GIVING CONSENT OF NOW FOR PEG, NEEDS TO F/U IN MORNING IF SHE WILL CONSENT. WANTS TO FURTHER DISCUSS WITH DOCTOR
--- NOTE | 2017-04-10 19:00 | NUR ---
PATIENT AWAKE BUT FORGETFULL NO SOB NO CHEST PAIN NOTED, NGT IN PLACE, NO N/V NO DIARRHEA NOTED, KEPT COMFORTABLE.
[2017-04-10 20:22] VITALS: BP 135/63
[2017-04-10] MEDS: LATANOPROST OPHT DROP 2.5 ML BOTTLE EACHEYE SCH (21:30)
[2017-04-10] MEDS: ATORVASTATIN 10 MG TABLET GT SCH (21:30)
[2017-04-11] MEDS: ACETAMINOPHEN 325 MG TABLET PO PRN (03:27)
--- NOTE | 2017-04-11 03:54 | NUR ---
PATIENT AWAKE, TRIES TO CLIMB OUT OF BED, EPISODES OF RESTLESSNESS IN BED, KEPT CLEAN AND DRY, REPOSITION BUT NOT EFFECTIVE, GIVEN TYLENOL 650 MG FOR COMFORT AND PAIN, AND ATIVAN 1MG FOR AGITATION, AND RESTLESSNESS, NO ADVERSE REACTION NOTED. CONT TO MONITOR,
[2017-04-11 05:08] VITALS: BP 125/77
[2017-04-11] MEDS: PANTOPRAZOLE ORAL SUSPENSION 40 MG SUSPDR.PKT GT SCH (06:06)
[2017-04-11] MEDS: FIBERSOURCE HN 1000ML LIQUID GT PRN ×2 (06:08→21:34)
--- NOTE | 2017-04-11 06:35 | NUR ---
PATIENT ASLEEP BUT AROUSABLE, NO SOB NO CHEST PAIN NOTED, ON NGT FEEDING TOLERATE WELL, NO NAUSEA NO VOMITING NOTED, NO DIARRHEA NOTED, ATIVAN WAS EFFECTIVE NO FURTHER EPISODES OF AGITATION AND RESTLESSNESS NOTED, KEPT CLEAN AND DRY, NO DISTRESS.
[2017-04-11 07:07] LABS: BASOPHILS % (AUTO) 0.3 % (0.0-2.0); EOSINOPHILS # (AUTO) 0.1 K/uL (0.0-0.7); EOSINOPHILS % (AUTO) 1.5 % (0.0-7.0); HEMATOCRIT 34.6 % (37-47); HEMOGLOBIN 11.4 G/DL (12.0-16.0); LYMPHOCYTES # (AUTO) 1.7 K/UL (0.8-4.8); LYMPHOCYTES % (AUTO) 25.3 % (20.5-51.5); MEAN CORPUSCULAR HGB CONC 33 g/dL (32.0-37.0); MEAN CORPUSCULAR VOLUME 90.8 FL (81.0-99.0); MONOCYTES # (AUTO) 0.3 K/UL (0.1-1.30); MONOCYTES % (AUTO) 5.2 % (0.0-11.0); NEUTROPHILS # (AUTO) 4.5 K/UL (1.8-8.9); NEUTROPHILS % (AUTO) 67.7 % (38.5-71.5); PLATELET COUNT (AUTO) 287 K/UL (150-450); RED BLOOD CELL COUNT(AUTO) 3.81 MIL/UL (4.2-5.4); WHITE BLOOD COUNT (AUTO) 6.6 K/UL (4.0-11.2)
[2017-04-11 07:16] LABS: CREATININE 0.9 mg/dL (0.6-1.3); MAGNESIUM 2.1 mg/dL (1.8-2.4); POTASSIUM 3.9 mmol/L (3.5-5.1)
--- NOTE | 2017-04-11 08:30 | NUR ---
RECEIVED REPORT FROM CHARGE NURSE, SAFETY CHECK, BED IN LOW POSITION, SIDE RAILS UP X2
[2017-04-11] MEDS: DONEPEZIL 10 MG TABLET GT SCH (09:47)
[2017-04-11] MEDS: ESCITALOPRAM OXALATE 10 MG TABLET GT SCH (09:47)
[2017-04-11] MEDS: OLANZAPINE 2.5 MG TABLET GT SCH (09:48)
[2017-04-11] MEDS: ASPIRIN 81 MG TAB.CHEW GT SCH (09:48)
[2017-04-11 11:57] VITALS: BP 126/72
--- NOTE | 2017-04-11 12:00 | NUR ---
PATIENT RESTING COMFORTABLY, MITTENS CHECKED HOURLY AND ROM PERFORMED
[2017-04-11 16:09] VITALS: BP 145/72
[2017-04-11 18:54] LABS: *BILIRUBIN,URIN NEGATIVE (NEGATIVE); *BLOOD, URINE NEGATIVE (NEGATIVE); *CLARITY,URINE CLOUDY (CLEAR); *COLOR,URINE YELLOW (YELLOW); *KETONES,URINE NEGATIVE (NEGATIVE); *PROTEIN,URINE NEGATIVE (NEGATIVE); LEUKOCYTE ESTERASE ,URINE NEGATIVE (NEGATIVE); NITRITE, URINE NEGATIVE (NEGATIVE); PH,URINE 8.5 (5.0-8.0); UGLUCOSE NEGATIVE (NEGATIVE)
[2017-04-11 19:00] VITALS: BP 138/78
--- NOTE | 2017-04-11 19:00 | NUR ---
PATIENT HAS BEEN CALM MOST OF THE DAY, PATIENT WILL NOT BE HAVING THE EGD OR PEG PLACEMENT TOMORROW. FOLLOW UP WITH CASE MANAGMENT FOR UPDATES
[2017-04-11 19:12] LABS: BACTERIA,URINE FEW /HPF (NONE SEEN); MUCUS,URINE FEW /LPF (0-FEW); SQUAMOUS EPITHELIAL CELL,UR MANY /HPF (NONE SEEN); WBC,URINE 0-3 /HPF (0-3)
--- NOTE | 2017-04-11 19:45 | NUR ---
RECEIVED PT IN BED RESTING WITH EYES CLOSED, EASILY AWAKENS TO TOUCH. NO ACUTE DISTRESS NOTED. NO S/S OF PAIN OR UNEASINESS OBSERVED AT THIS TIME. NGT FEEDING INFUSING AT 70 CC/HR OBSERVED, NO RESIDUAL. REPOSITIONED FOR COMFORT. ASPIRATION PRECAUTIONS OBSERVED. SAFETY MEASURES IN PLACE. WILL CONTINUE TO MONITOR.
[2017-04-11] MEDS: LATANOPROST OPHT DROP 2.5 ML BOTTLE EACHEYE SCH (21:10)
[2017-04-11] MEDS: ATORVASTATIN 10 MG TABLET GT SCH (21:10)
[2017-04-12 04:00] VITALS: BP 118/56
[2017-04-12] MEDS: HYDROCODONE/APAP 5-325MG TABLET GT PRN (05:16)
--- NOTE | 2017-04-12 05:16 | NUR ---
PT RESTLESS, GRINDING TEETH AND OCCASIONAL GRIMACING OBSERVED, PRN PAIN MED [place]CO GIVEN PRESCRIBED. WILL REASSESS. WILL CONTINUE TO MONITOR.
[2017-04-12] MEDS: PANTOPRAZOLE ORAL SUSPENSION 40 MG SUSPDR.PKT GT SCH (05:17)
--- NOTE | 2017-04-12 05:44 | NUR ---
PATIENT IN BED RESTING, IN NO ACUTE DISTRESS NOTED AT THIS TIME. SLEPT MOST OF THE NIGHT. NGT FEEDING TOLERATING WELL, WITH NO RESIDUAL. VS STABLE. AFEBRILE. NO SOB OBSERVED. SAFETY NEEDS PROVIDED. WILL CONTINUE TO MONITOR.
[2017-04-12 07:57] LABS: POTASSIUM 4.4 mmol/L (3.5-5.1)
[2017-04-12 07:59] LABS: BASOPHILS % (AUTO) 0.2 % (0.0-2.0); EOSINOPHILS # (AUTO) 0.1 K/uL (0.0-0.7); EOSINOPHILS % (AUTO) 1.5 % (0.0-7.0); HEMATOCRIT 33.3 % (37-47); HEMOGLOBIN 11.1 G/DL (12.0-16.0); LYMPHOCYTES # (AUTO) 1.5 K/UL (0.8-4.8); LYMPHOCYTES % (AUTO) 26.8 % (20.5-51.5); MEAN CORPUSCULAR HGB CONC 33 g/dL (32.0-37.0); MEAN CORPUSCULAR VOLUME 89.8 FL (81.0-99.0); MONOCYTES # (AUTO) 0.3 K/UL (0.1-1.30); MONOCYTES % (AUTO) 5.1 % (0.0-11.0); NEUTROPHILS # (AUTO) 3.9 K/UL (1.8-8.9); NEUTROPHILS % (AUTO) 66.4 % (38.5-71.5); PLATELET COUNT (AUTO) 325 K/UL (150-450); RED BLOOD CELL COUNT(AUTO) 3.71 MIL/UL (4.2-5.4); WHITE BLOOD COUNT (AUTO) 5.8 K/UL (4.0-11.2)
[2017-04-12] MEDS: OLANZAPINE 2.5 MG TABLET GT SCH (09:25)
[2017-04-12] MEDS: ASPIRIN 81 MG TAB.CHEW GT SCH (09:25)
[2017-04-12] MEDS: ESCITALOPRAM OXALATE 10 MG TABLET GT SCH (09:25)
[2017-04-12] MEDS: DONEPEZIL 10 MG TABLET GT SCH (09:25)
[2017-04-12 12:10] VITALS: BP 118/63
[2017-04-12] MEDS ORDERED: ATOR10TA GT (15:50)
[2017-04-12] MEDS ORDERED: NAPR375T4 PO (15:50)
[2017-04-12 16:10] VITALS: BP 129/65
[2017-04-12 16:35] VITALS: BP 97/44
--- NOTE | 2017-04-12 19:00 | NUR ---
HOME INSTRUCTIONS REVIEWED WITH PT'S. DAUGHTER. DISCHARGED TO [facility].
== END 2017-04-12 19:00 | DRG 871 ==
LOC: ER 10:50 → TELE 15:15 → MED 04-04 13:20
PROVIDERS: ADMIT Family Medicine; ATTEND Family Medicine
DX: A41.9 Sepsis, unspecified organism (principal); N17.0 Acute kidney failure with tubular necrosis; G92 Toxic encephalopathy; E43 Unspecified severe protein-calorie malnutrition; I21.4 Non-ST elevation (NSTEMI) myocardial infarction; N39.0 Urinary tract infection, site not specified; E87.0 Hyperosmolality and hypernatremia; D68.59 Other primary thrombophilia; E86.9 Volume depletion, unspecified; E86.0 Dehydration; I10 Essential (primary) hypertension; F03.90 Unspecified dementia, unspecified severity, without behavioral disturbance, psychotic disturbance, mood disturbance, and anxiety; R65.20 Severe sepsis without septic shock; E78.5 Hyperlipidemia, unspecified; H40.9 Unspecified glaucoma; D64.9 Anemia, unspecified; Z51.5 Encounter for palliative care; R13.10 Dysphagia, unspecified; I11.9 Hypertensive heart disease without heart failure; K21.9 Gastro-esophageal reflux disease without esophagitis; M19.90 Unspecified osteoarthritis, unspecified site; Z86.73 Personal history of transient ischemic attack (TIA), and cerebral infarction without residual deficits; I70.0 Atherosclerosis of aorta; I25.2 Old myocardial infarction; I34.0 Nonrheumatic mitral (valve) insufficiency; D63.8 Anemia in other chronic diseases classified elsewhere
CPT/HCPCS: 36415; 51702; 70030-TC; 70450; 71010; 74000; 76770; 80307; 83735; 84100; 84156; 84300; 84443; 85025; 85730; 92523; 92526; 93005; 93307; 97161; A4663; C1758; C9113; G0480; G0480-TC; J0696; J2405; J3480; J3490; J7030; J7040; J7050; J7060; Q9963